=== PATIENT | male | born 1965 | race Caucasian/White ===

== ENCOUNTER 2017-11-11 11:20 | Emergency (ER) | payer OTHER ==
[2017-11-11 11:52] VITALS: BP 116/75
--- NOTE | 2017-11-11 12:06 | UC ---
Laceration HPI - HPI Summary HPI Summary: 52 y/o male presents to the urgent care c/o left thumb laceration while chopping onions at work today around 1100am. Pt states bleeding stopped w/ pressure and pain is only 2/10. Last Tetanus vaccine was in 2016. Pt denies fever, numbness and tingling sensation over thumb, SOB, chest pain, abdominal pain, N/V/D - History Of Current Complaint Chief Complaint: UCLaceration Stated Complaint: THUMB LAC Time Seen by Provider: 11/11/17 12:03 Hx Obtained From: Patient Laceration Location: Finger - left thumb superficial laceration Mechanism Of Injury: Sharp Trauma Onset/Duration: Sudden Onset, Lasting Hours - 1hr Severity: Mild Pain Intensity: 2 Pain Scale Used: 0-10 Numeric Aggravating Factors: Movement Related History: Dominant Hand Right - Allergies/Home Medications Allergies/Adverse Reactions: Allergies Allergy/AdvReac Type Severity Reaction Status Date / Time No Known Allergies Allergy Verified 11/11/17 11:47 Home Medications: Home Medications Buspirone HCl 7.5 mg PO BID 11/11/17 [History Confirmed 11/11/17] PMH/Surg Hx/FS Hx/Imm Hx Previously Healthy: Yes Psychological History: Anxiety - Surgical History Surgical History: None - Family History Known Family History: Positive: Cardiac Disease, Hypertension - Social History Occupation: Employed Full-time Lives: With Family Alcohol Use: None Substance Use Type: None Smoking Status (MU): Never Smoked Tobacco - Immunization History Most Recent Tetanus Shot: 2015 Hx Tetanus, Diphtheria Vaccination: Yes Review of Systems Constitutional: Negative Skin: Other - left thumb superficial laceration Eyes: Negative ENT: Negative Respiratory: Negative Cardiovascular: Negative Gastrointestinal: Negative Genitourinary: Negative Motor: Negative Neurovascular: Negative Musculoskeletal: Negative Neurological: Negative Psychological: Negative Is Patient Immunocompromised?: No All Other Systems Reviewed And Are Negative: Yes Physical Exam - Summary Physical Exam Summary: Vital Signs Reviewed: Yes General: well developed, well nourished male sitting in the examining table w/o any apparent distress Eye Exam: Normal Eyes: Positive: Conjunctiva Clear - PERRLA, EOMI, fundi grossly normal ENT: Positive: Normal ENT inspection, Hearing grossly normal, Pharynx normal, TMs normal Neck: Positive: Supple, Nontender, No Lymphadenopathy Respiratory: Positive: Chest non-tender, Lungs clear, Normal breath sounds, No respiratory distress Cardiovascular: Positive: RRR, No Murmur, Pulses Normal, Brisk Capillary Refill Abdomen Description: Positive: Nontender, No Organomegaly, Soft. Negative: CVA Tenderness (R), CVA Tenderness (L) Bowel Sounds: Positive: Present Musculoskeletal: Positive: Strength Intact, ROM Intact, No Edema Neurological: Positive: Alert, Muscle Tone Normal Psychological Exam: Normal Skin: Positive:Lateral side distal #first left phalanx w/ a superficial laceration , semilunar in shape about 1.2cm in size, non bleeding, no foreign body observed. non tenderness to palpation, no involvement of nail . FROM of left thumb, sensation intact, capillary refill brisk, and pulses WNL. Triage Information Reviewed: Yes Vital Signs: Initial Vital Signs Temp 97.7 F 11/11/17 11:46 Pulse 65 11/11/17 11:46 Resp 18 11/11/17 11:46 BP 116/75 11/11/17 11:46 Pulse Ox 99 11/11/17 11:46 Laceration Repair - Laceration Repair 1 Description: Irregular - semilunar in shape Laceration Size After Repair: Length (cm) - 1.2cm Modified For Repair: No Cleansing Completed Via Routine Prep: Yes Irrigation With Pressure Irrigation Device: Yes Closure Material: Skin Adhesive Closure Method: Single Layer Suture Of: Skin Laceration Course/Dx - Course/Dx Course Of Treatment: 52 y/o male presents to the urgent care c/o left thumb laceration while chopping onions at work today around 1100am. Pt states bleeding stopped w/ pressure and pain is only 2/10. Last Tetanus vaccine was in 2016. Pt denies fever, numbness and tingling sensation over thumb, SOB, chest pain, abdominal pain, N/V/D. Hx obatined. Pt w/ distal lateral side of #first left phalanx superficial laceration, semilunar in shape, about 1.2cm in size, non bleeding and non tender to palaption one examination. LACERATION PROCEDURE NOTE: Copious irrigation was done with saline and the wound explored. There was no FB or deep structure injury noted. No need for sutures. Iodine applied around wound 3X. Skin adhesive applied. Wound was covered sterile non adherent dressing and tube dressing. The Pt tolerated the procedure well without adverse effects. Pt neurovascular intact. Pt advised if signs of infection develop like fever, redness, pain to return to the urgent care or f/u with PCP for further treatment.PT understood and agreed. Pt left the clinic ambulating. - Differential Dx - Laceration/Wound Differental Diagnoses: Abrasion, Laceration, Puncture Wound, Tendon Laceration Provider Diagnoses: 1- left #first phalanx with superficial laceracion Discharge - Discharge Plan Condition: Stable Disposition: HOME Prescriptions: Bacitracin OINTMENT* 1 applic TOPICAL BID #1 tube Patient Education Materials: Laceration (ED), Skin Adhesive Care (ED) Referrals: Kalpesh Cummings MD [Primary Care Provider] - If Needed Additional Instructions: 1-Please apply topical antibiotic over the wound. Keep wound clean and dry 2-Take Ibuprofen or Tylenol PO q6-8hrs prn if you develop pain or swelling. Avoid flexion w/ your thumb 4- If you develop fever or redness around your finger despite the antibiotic please go to the ER immediately or return to the Urgent care.
== END 2017-11-11 12:45 | disposition home or self-care (01) ==
LOC: UCEAST 11:20
DX: S61.012A Laceration without foreign body of left thumb without damage to nail, initial encounter (principal); X58.XXXA Exposure to other specified factors, initial encounter; Y93.G1 Activity, food preparation and clean up; Y92.9 Unspecified place or not applicable; F41.9 Anxiety disorder, unspecified
CPT/HCPCS: 12001; 99212; G0463